=== PATIENT | male | born 1995 | race Caucasian/White ===

== ENCOUNTER 2019-04-21 00:21 | Emergency (ER) | payer OTHER ==
--- NOTE | 2019-04-21 00:50 | ED.PDOC ---
History of Present Illness - General Time Seen by Provider: 04/21/19 00:43 Source: patient, RN notes reviewed, Vital Signs reviewed - History of Present Illness Comments: Patient presents for evaluation of cough and nasal congestion over the past few days. He does endorse posterior nasal drainage. He denies fevers, chills, nausea, vomiting or SOB. He denies recent abx or sick contacts. He has not used any medications to help his symptoms. He otherwise feels well. Cough Quality/Degree: mild Home Medications: Ambulatory Orders Fluticasone Prop 0.05% Nasal [Flonase Nasal Gilchrist] 1 spray BNAS DAILY #1 spray 04/21/19 Review of Systems - Review of Systems Constitutional: Denies: chills, fever EENTM: States: nose congestion Respiratory: States: cough. Denies: short of breath Cardiology: Denies: chest pain Gastrointestinal/Abdominal: Denies: abdominal pain Skin: Denies: rash Neurological: Denies: headache Past Medical History (General) - Patient Medical History Hx MRSA: Yes - Thigh 2008 MRSA Source:: Wound Physical Exam - Physical Exam General Appearance: Alert, Comfortable, No apparent distress Eye Exam: bilateral normal ENT Exam: hearing grossly normal, TMs normal, pharynx normal, nasal congestion Neck: full range of motion, supple, normal inspection Respiratory: lungs clear, normal breath sounds, no respiratory distress, no accessory muscle use Cardiovascular/Chest: normal peripheral pulses, regular rate, rhythm, no edema, no gallop Gastrointestinal/Abdominal: non tender, soft Neurologic: no motor/sensory deficits, alert, normal mood/affect, oriented x 3 Progress - Progress Progress: Patient presents for evaluation of cough and sinus congestion. Patient is non- toxic and hemodynamically stable. Exam was not significant for signs of strep pharyngitis, pneumonia, or otitis media. Exam was significant for signs of sinusitis and pharyngitis, likely from viral URI. Discussed supportive care. Symptoms do not suggest bacterial nature. Will not prescribe abx at this time. Rx written for flonase. Departure - Departure Clinical Impression: Viral URI Sinusitis Qualifiers: Sinusitis location: maxillary Chronicity: acute Recurrence: non-recurrent Qualified Code(s): J01.00 - Acute maxillary sinusitis, unspecified Time of Disposition: 00:52 Disposition: Discharge to Home or Self Care Condition: Good Instructions: Viral Upper Respiratory Infection, Adult (DC), Sinusitis in Adults Referrals: LOPEZ DURAN [Primary Care Provider] - 1-2 Weeks Prescriptions: Fluticasone Prop 0.05% Nasal [Flonase Nasal Gilchrist] 1 spray BNAS DAILY #1 spray Home Medications: Ambulatory Orders Fluticasone Prop 0.05% Nasal [Flonase Nasal Gilchrist] 1 spray BNAS DAILY #1 spray 04/21/19 Comments: Tabatha Baltazar #[id number]
[2019-04-21 00:52] VITALS: BP 151/102; TEMP 99.1; O2SAT 99
== END 2019-04-21 01:03 | disposition home or self-care (01) ==
LOC: ER 00:21
DX: J06.9 Acute upper respiratory infection, unspecified (principal); J01.00 Acute maxillary sinusitis, unspecified